=== PATIENT | female | born 1955 | race Caucasian/White ===

== ENCOUNTER 2017-01-23 05:37 | Outpatient (CLI) | payer SELFPAY ==
[~2017-01-23] VITALS: Ht 167.6 cm; Wt 72.6 kg
--- OUTSIDE RECORDS SUMMARY | 2017-01-23 05:40 | XMS REPORT ---
Author Author RON GATICA Organization [employer] Address Unknown Phone Unavailable Care Team Providers [facility] [employer] [facility] Name Role Phone RON GATICA CP Unavailable Allergies, Adverse Reactions, Alerts Substance Reaction Event Type N.K.D.A. Info Not Available Non Drug Allergy Problems Problem Type Condition Code Onset Dates Condition Status Problem Essential hypertension I10 Active Assessment Acute non-recurrent maxillary sinusitis J01.00 Active Problem Type 2 diabetes mellitus with diabetic polyneuropathy, without long- term current use of insulin E11.42 Active Assessment Refused smoking cessation educational materials Z87.891 Active Medications Medication Code System Code Instructions Start Date End Date Status Dosage Doxycycline Hyclate [facility] [address]-99 100 MG Orally every 12 hrs Sep 14, 2016 Sep 20, 2016 1 tablet Lisinopril-Hydrochlorothiazide [facility] [address]-02 20-12.5 MG Orally Once a day 1 tablet Metformin HCl [facility] [address]-86 1000 MG Orally Twice a day 1 tablet with meals GlyBURIDE [facility] [address]-98 5 mg Orally twice a day 1 tablet Procedures Procedure Coding System Code Date Office Visit, Est Pt., Level 3 CPT-4 79845 Sep 14, 2016 MEASURE BLOOD OXYGEN LEVEL CPT-4 47562 Sep 14, 2016 Vital Signs Date/Time: Sep 14, 2016 Cardiac Monitoring Heart Rate 104 bpm Weight 168 lbs Height 67 in BMI 26.31 Index Oximetry 98 % Blood Pressure Diastolic 80 mmHg Blood Pressure Systolic 144 mmHg Results No Known Results Summary Purpose [employer] Submission
[2017-01-23] MEDS ORDERED: GLIP5TAB13 PO (12:17)
[2017-01-23] MEDS ORDERED: METF1000 PO (12:17)
[2017-01-23] MEDS ORDERED: LISI1TAB8 PO (12:17)
== END 2017-01-23 12:26 ==
LOC: PREOP 05:37
PROVIDERS: ATTEND Otolaryngology Otolaryngology/Facial Plastic Surgery
DX: Z01.818 Encounter for other preprocedural examination (principal); J38.3 Other diseases of vocal cords; H61.21 Impacted cerumen, right ear

== ENCOUNTER 2017-01-26 08:36 | Day surgery (SDC) | payer OTHER ==
[~2017-01-26] VITALS: Ht 167.6 cm; Wt 72.6 kg
[~2017-01-26 08:36] MED LIST: GLIP5TAB13 PO; LISI1TAB8 PO; METF1000 PO
[2017-01-26 08:50] VITALS: BP 133/58
[2017-01-26] MEDS: LACTATED RINGERS 1,000 ML IV PRN ×2 (08:50→11:58)
[2017-01-26] MEDS ORDERED: SIMV10TA3 PO (09:11)
--- NOTE | 2017-01-26 10:29 | Progress Note-Pre Operative ---
Pre-Operative Progress Note H&P Reviewed The H&P was reviewed, patient examined and no changes noted. Date H&P Reviewed: Jan 26, 2017 Time H&P Reviewed: 09:30 Pre-Operative Diagnosis: Right vocal cord polyp with hoarseness VÍCTOR LYNCH MD Jan 26, 2017 10:29 am
[2017-01-26] MEDS ORDERED: ONDANSETRON 4 MG/2 ML (SDV) Z0FRAN ONE (10:37)
[2017-01-26] MEDS ORDERED: MIDAZOLAM 2 MG/2 ML (VERSED) VIAL ONE (10:37)
[2017-01-26] MEDS ORDERED: ROCURONIUM 50 MG/5 ML (ZEMURON) VIAL IV ONE (10:37)
[2017-01-26] MEDS ORDERED: SEVOFLURANE (ULTANE) 15 ML INHAL SOLN ONE (10:37)
[2017-01-26] MEDS ORDERED: LACTATED RINGERS 1,000 ML IV ONE ×2 (10:37→11:56)
[2017-01-26] MEDS ORDERED: fentaNYL INJECTION 100 MCG/2 ML AMP ONE (10:38)
[2017-01-26] MEDS ORDERED: LIDOCAINE PF 2% 10 ML (XYLOCAINE) AMP ONE (10:39)
[2017-01-26] MEDS ORDERED: LIDOCAINE JELLY 2% (XYLOCAINE) 5 ML TUBE ONE (10:42)
[2017-01-26] MEDS ORDERED: LIDOCAINE/EPI 1%-1:100,000 (XYLOCAINE) 20ML ONE (10:43)
[2017-01-26] MEDS ORDERED: proPOfol 200 MG/20 ML (DIPRIVAN) VIAL IV ONE ×2 (10:46→11:20)
[2017-01-26 10:52] LABS: CALCIUM 9.3 MG/DL (8.5-10.1); CREATININE SERUM 1.19 MG/DL (0.60-1.30); POTASSIUM 4.4 MMOL/L (3.6-5.0)
[2017-01-26] MEDS ORDERED: SUCCINYLCHOLINE INJ 100 MG/5 ML SYR ONE (10:58)
--- NOTE | 2017-01-26 11:31 | Progress Note-Post Operative ---
Post-Operative Progess Note Pre-Operative Diagnosis Right vocal cord polyp with hoarseness Post-Operative Diagnosis same Post-Op Procedure Note Date of Procedure: Jan 26, 2017 Name of Procedure: Direct Laryngsocpy with REmoval of Right Vocl Cord Mass, REmoval of REight Cerumen IMpaction Anesthesia Type get Estimated blood loss (mL): minimal Specimen(s) collected Right Voca l Cord Mass VÍCTOR LYNCH MD Jan 26, 2017 11:31 am
[2017-01-26] MEDS ORDERED: HYDROcodone/APAP 5 MG/325 MG (LORTAB) TAB PO PRN (11:45)
[2017-01-26] MEDS ORDERED: PROMETHAZINE INJ 25 MG/ML (PHENERGAN) AMP IV PRN (11:45)
[2017-01-26] MEDS ORDERED: ACETAMINOPHEN 325 MG TABLET/CAPLET (TYLENOL) PO PRN (11:45)
[2017-01-26] MEDS ORDERED: PHENYLEPHRINE 100 MCG/ML 10 ML (ANESTHESIA) SYR ONE (12:02)
[2017-01-26] MEDS ORDERED: HYDR-3812 PO (12:09)
[2017-01-26 12:25] VITALS: BP 100/64
[2017-01-26 12:50] VITALS: BP 103/77
== END 2017-01-26 13:07 | disposition home or self-care (01) ==
LOC: SDC 08:36
PROVIDERS: ATTEND Otolaryngology Otolaryngology/Facial Plastic Surgery
DX: J38.3 Other diseases of vocal cords (principal); R49.0 Dysphonia; H61.21 Impacted cerumen, right ear; E11.9 Type 2 diabetes mellitus without complications; Z79.84 Long term (current) use of oral hypoglycemic drugs
CPT/HCPCS: 36415; 80048; 82962; 87081; 88305